=== PATIENT | male | born 1940 | race Caucasian/White ===

== ENCOUNTER 2019-12-29 07:45 | Day surgery (SDC) | payer OTHER ==
[~2019-12-29] VITALS: Ht 172.7 cm; Wt 90.4 kg
[~2019-12-29 07:45] MED LIST: ALLO100 PO; ALOGLIPTIN25 MG PO; ATORVASTATIN CA10 MG PO; Aspirin EC81 MG PO; FOLI1 PO; GLIP10 PO; Glucophage1000 MG PO; Hair, Skin & N1 EACH PO; Isosorbide Mono30 MG PO; Metoprolol Tart50 MG PO; Nexium40 MG PO; POTCHL20ER PO; Prinivil10 MG PO; STELARA90 MG/1 ML SC
--- NOTE | 2019-12-29 09:35 | NUR ---
12/29/19 0935 Gala Garcia FROM [facility] USED #[id number]
== END 2019-12-29 12:12 | disposition home or self-care (01) ==
LOC: ORSCSDS 07:45
PROVIDERS: Internal Medicine Gastroenterology
PROC: 0DBN8ZX Excision of Sigmoid Colon, Via Natural or Artificial Opening Endoscopic, Diagnostic (ICD-10-PCS; principal; 2019-12-29 09:15)
PROC: 0DB78ZX Excision of Stomach, Pylorus, Via Natural or Artificial Opening Endoscopic, Diagnostic (ICD-10-PCS; principal; 2019-12-29 09:15)
PROC: 0DBK8ZX Excision of Ascending Colon, Via Natural or Artificial Opening Endoscopic, Diagnostic (ICD-10-PCS; principal; 2019-12-29 09:15)
PROC: 0DBL8ZX Excision of Transverse Colon, Via Natural or Artificial Opening Endoscopic, Diagnostic (ICD-10-PCS; principal; 2019-12-29 09:15)
DX: R19.8 Other specified symptoms and signs involving the digestive system and abdomen (principal); K21.9 Gastro-esophageal reflux disease without esophagitis; K31.7 Polyp of stomach and duodenum; D12.3 Benign neoplasm of transverse colon; D12.2 Benign neoplasm of ascending colon; D12.5 Benign neoplasm of sigmoid colon; K44.9 Diaphragmatic hernia without obstruction or gangrene; K64.2 Third degree hemorrhoids; I10 Essential (primary) hypertension; E11.9 Type 2 diabetes mellitus without complications; I25.10 Atherosclerotic heart disease of native coronary artery without angina pectoris; Z79.899 Other long term (current) drug therapy; Z79.84 Long term (current) use of oral hypoglycemic drugs; Z79.82 Long term (current) use of aspirin; Z87.891 Personal history of nicotine dependence
CPT/HCPCS: 82947; 88305; 88342; J2704; J7120

== ENCOUNTER 2022-05-25 11:47 | Day surgery (SDC) | payer OTHER ==
[~2022-05-25] VITALS: Ht 172.7 cm; Wt 87.9 kg
[2022-05-25] MEDS ORDERED: ZYRTEC10 M2 (12:48)
[2022-05-25] MEDS ORDERED: FINA5 (12:48)
[2022-05-25] MEDS ORDERED: Flonase 0.05% N16 GM (12:48)
[2022-05-25] MEDS ORDERED: Nexium10 MG (12:48)
[2022-05-25] MEDS ORDERED: ALBU90OI (12:48)
[2022-05-25] MEDS ORDERED: METF500 (12:49)
[2022-05-25] MEDS ORDERED: Magnesium30 MG (12:49)
[2022-05-25] MEDS ORDERED: LOSA25 (12:49)
[2022-05-25] MEDS ORDERED: MOLNUPIRAVIR (200 MG (12:49)
[2022-05-25] MEDS ORDERED: TERB250 (12:50)
[2022-05-25] MEDS ORDERED: POLYOX WSR-3011 GM (12:50)
[2022-05-25] MEDS ORDERED: Flomax0.4 MG (12:50)
[2022-05-25] MEDS ORDERED: WEGOVY1 MG/0.5 M (12:50)
--- NOTE | 2022-05-25 13:28 | NUR ---
05/25/22 1328 Zuly Gunderson TWO ATTEMPTS AT IV BY MARIO. FIRST ATTEMPT IN L HAND UNABLE TO ENTER CATHERTER INTO VEIN. SECOND ATTEMPT IN R AC SUCESSFUL.
== END 2022-05-25 15:22 | disposition home or self-care (01) ==
LOC: ORSCSDS 11:47
PROVIDERS: Internal Medicine Gastroenterology
PROC: 0DBH8ZX Excision of Cecum, Via Natural or Artificial Opening Endoscopic, Diagnostic (ICD-10-PCS; principal; 2022-05-25 13:15)
PROC: 0DBL8ZX Excision of Transverse Colon, Via Natural or Artificial Opening Endoscopic, Diagnostic (ICD-10-PCS; principal; 2022-05-25 13:15)
PROC: 0DB78ZX Excision of Stomach, Pylorus, Via Natural or Artificial Opening Endoscopic, Diagnostic (ICD-10-PCS; principal; 2022-05-25 13:15)
PROC: 0DBM8ZX Excision of Descending Colon, Via Natural or Artificial Opening Endoscopic, Diagnostic (ICD-10-PCS; principal; 2022-05-25 13:15)
DX: Z12.11 Encounter for screening for malignant neoplasm of colon (principal); Z86.010 Personal history of colon polyps; K21.9 Gastro-esophageal reflux disease without esophagitis; R13.14 Dysphagia, pharyngoesophageal phase; R10.13 Epigastric pain; K64.8 Other hemorrhoids; D12.0 Benign neoplasm of cecum; D12.3 Benign neoplasm of transverse colon; D12.4 Benign neoplasm of descending colon; K31.7 Polyp of stomach and duodenum; I25.10 Atherosclerotic heart disease of native coronary artery without angina pectoris; E11.40 Type 2 diabetes mellitus with diabetic neuropathy, unspecified; Z79.899 Other long term (current) drug therapy; Z87.891 Personal history of nicotine dependence
CPT/HCPCS: 82947; 88305; 88341; 88342; J2704; J7120